=== PATIENT | female | born 1985 | race Two or more races ===

== ENCOUNTER → 2023-05-30 | Emergency (ER) | payer OTHER ==
[~2023-05-30] VITALS: Ht 170.2 cm; Wt 70.3 kg
[~2023-05-30] MED LIST: AMLODIPINE-OLM1 EACH PO; CRESTOR20 MG PO; XIGDUO XR 10 M1 EAC1 PO; ZESTRIL40 M1 PO
== END | disposition home or self-care (01) ==
LOC: ER 11:56
DX: Z53.21 Procedure and treatment not carried out due to patient leaving prior to being seen by health care provider (principal)